=== PATIENT | female | born 1975 | race Caucasian/White ===

== ENCOUNTER 2018-03-06 07:30 | Day surgery (SDC) | payer OTHER ==
[~2018-03-06 07:30] MED LIST: MEDROL4 MG PO
== END 2018-03-06 12:00 | disposition home or self-care (01) ==
LOC: AMB-ENDOS 07:30
DX: K64.1 Second degree hemorrhoids (principal)

== ENCOUNTER 2021-02-09 07:33 | Day surgery (SDC) | payer OTHER | END 2021-02-09 14:20 | disposition home or self-care (01) | LOC: AMB-ENDOS 07:33 | PROVIDERS: ATTEND Colon & Rectal Surgery | DX: K62.89 Other specified diseases of anus and rectum (principal); K64.0 First degree hemorrhoids; Z20.822 Contact with and (suspected) exposure to COVID-19; Z12.11 Encounter for screening for malignant neoplasm of colon ==